=== PATIENT | male | born 1980 | race Caucasian/White ===

== ENCOUNTER → 2016-05-05 | Outpatient (CLI) | payer BC, OTHER ==
--- NOTE | 2016-05-06 19:35 | MR ---
EXAM DATE: 05/05/16 PATIENT'S AGE: 35 Patient: FLOYD COATES Facility: [place], [place] Site . Site : 1980 Study: MRI Shoulder Left [id number]/9/2017 7:24:41 PM Ordering Physician: Eloy Shaw Final Report: HISTORY: Shoulder pain. Technique: Routine shoulder protocol. Findings: Rotator cuff: Moderate increased signal intensity is present within the subscapularis and supraspinatus tendons consistent with moderate tendinosis. No tearing is noted. The other cuff components are intact. Acromioclavicular joint region: Mild degenerative change is present. There is surrounding bone marrow and soft tissue edema which could be related to the arthritic process alone. If there has been a recent injury, these findings could indicate ligamentous or capsular injury but no malalignment is noted. There is a flat, type 1 acromial undersurface without lateral downsloping. Biceps labral complex: No labral tearing or separation is noted. The biceps anchor and long biceps tendon are intact and in normal position. Glenohumeral joint: The articular cartilage surfaces are within normal limits. No joint effusion, erosion or loose body is noted. Bones and soft tissues: No findings for fracture or tumor. No muscular atrophy is noted. Impression: 1. Moderate subscapularis and supraspinatus tendinosis/contusion. No tearing is noted. 2. Degenerative change of the acromioclavicular joint with surrounding bone marrow and soft tissue edema. Dictated by Mariano Garcia MD @ May 06 2016 9:28AM (Electronic Signature) Report Signed by Proxy and Original Signed Document filed in the Medical Record. TAMMIE
== END ==
LOC: MW.MRI 17:49
PROVIDERS: ATTEND General Practice
DX: M75.82 Other shoulder lesions, left shoulder (principal); M79.89 Other specified soft tissue disorders
CPT/HCPCS: 73221-26-LT; 73221-LT

== ENCOUNTER 2017-03-11 18:03 | Emergency (ER) | payer BC, OTHER ==
--- NOTE | 2017-03-11 19:50 | EDM.PDOC ---
ED HPI GENERAL MEDICAL PROBLEM - General Chief Complaint: Lower Extremity Injury/Pain Stated Complaint: RIGHT FOOT PAIN Time Seen by Provider: 03/11/17 19:45 Source of Information: Reports: Patient History Limitations: Reports: No Limitations - History of Present Illness INITIAL COMMENTS - FREE TEXT/NARRATIVE: HISTORY AND PHYSICAL: History of present illness: [Patient comes to the emergency room complaining of right foot and ankle pain. States that around 10 AM this morning he was wearing crocs when he rolled his right ankle. He is now complaining of lateral and medial ankle pain, which is gradually worsening through the day. He denies numbness and tingling. He has not applied any ice, or taken any anti-inflammatories or medications. Denies history of previous fracture surgery to right lower extremity.] Review of systems: As per history of present illness and below otherwise all systems reviewed and negative. Past medical history: As per history of present illness and as reviewed below otherwise noncontributory. Surgical history: As per history of present illness and as reviewed below otherwise noncontributory. Social history: No reported history of drug or alcohol abuse. Family history: As per history of present illness and as reviewed below otherwise noncontributory. Physical exam: HEENT: Atraumatic, normocephalic. Extremities: Atraumatic in appearance. Is tender with palpation over lateral and medial aspect of the malleoli and foot. Pedal pulses are intact. Cap refill less than 2 seconds. negative for cords or calf pain. Neurovascular unremarkable. Neuro: Awake, alert, oriented. Cranial nerves II through XII unremarkable. Cerebellum unremarkable. Motor and sensory unremarkable throughout. Exam nonfocal. Diagnostics: [Right ankle x-ray] Impression: [Right ankle pain] Plan: [Notified patient that his x-rays are negative for fracture. Recommend rest ice compression and elevation. [id number] analgesics as needed. Follow-up with PCP. Return to ER as needed as discussed.] Definitive disposition and diagnosis as appropriate pending reevaluation and review of above. right foot Pain Score (Numeric/FACES): 10 - Related Data Allergies Allergy/AdvReac Type Severity Reaction Status Date / Time No Known Allergies Allergy Verified 02/14/14 13:45 Home Meds: Home Meds . [No Known Home Meds] 02/14/14 [History] Past Medical History - Past Health History Medical/Surgical History: Denies Medical/Surgical History Social & Family History - Family History Family Medical History: Noncontributory - Tobacco Use Smoking Status *Q: Never Smoker - Alcohol Use Days Per Week of Alcohol Use: 0 - Recreational Drug Use Recreational Drug Use: No Review of Systems - Review of Systems Review Of Systems: ROS reveals no pertinent complaints other than HPI. ED EXAM, GENERAL - Physical Exam Exam: See Below Course - Vital Signs Last Recorded V/S: Last Vital Signs Temp 98.7 F 03/11/17 18:34 Pulse 79 03/11/17 18:34 Resp 18 03/11/17 18:34 BP 138/78 03/11/17 18:34 Pulse Ox 99 03/11/17 18:34 - Orders/Labs/Meds Orders: Active Orders 24 hr Category Date Time Status Foot 2V Rt [CR] Stat Exams 03/11/17 18:13 Taken Departure - Departure Time of Disposition: 19:50 Disposition: Home, Self-Care 01 Condition: Good Clinical Impression: Right ankle pain - Discharge Information Referrals: PCP,None [Primary Care Provider] - Forms: ED Department Discharge Additional Instructions: The following information is given to patients seen in the emergency department who are being discharged to home. This information is to outline your options for follow-up care. We provide all patients seen in our emergency department with a follow-up referral. The need for follow-up, as well as the timing and circumstances, are variable depending upon the specifics of your emergency department visit. If you don't have a primary care physician on staff, we will provide you with a referral. We always advise you to contact your personal physician following an emergency department visit to inform them of the circumstance of the visit and for follow-up with them and/or the need for any referrals to a consulting specialist. The emergency department will also refer you to a specialist when appropriate. This referral assures that you have the opportunity for follow-up care with a specialist. All of these measure are taken in an effort to provide you with optimal care, which includes your follow-up. Under all circumstances we always encourage you to contact your private physician who remains a resource for coordinating your care. When calling for follow-up care, please make the office aware that this follow-up is from your recent emergency room visit. If for any reason you are refused follow-up, please contact the [facility] emergency department at and asked to speak to the emergency department charge nurse. [facility] [place] [id number] Follow-up with a local primary care provider or at the clinic listed above in the next 48-72 hours. Rest your ankle, put ice on your ankle, an ankle brace may help your ankle feel more supported. Elevate your ankle is much as possible. Tylenol alternating with ibuprofen as needed for discomfort. Return to ER as needed as discussed.
--- NOTE | 2017-03-13 18:20 | CR ---
EXAM DATE: 03/11/17 PATIENT'S AGE: 36 Patient: FLOYD COATES Facility: [place], [place] Site . Site : 1980 Study: XRay Extremity Right [id number]/13/2018 6:27:33 PM Ordering Physician: Doctor Iqbal Final Report: TECHNIQUE: Two views of the right foot. INDICATION: Foot pain. FINDINGS: No acute right foot fracture, dislocation or radiopaque foreign body. Normal right foot. Dictated by Parth Morrison MD @ 03/11/2017 6:35:14 PM Dictated by: Parth Morrison MD @ 03/11/2017 18:35:17 (Electronic Signature) Report Signed by Proxy. [email or web address]
== END 2017-03-11 20:15 | disposition home or self-care (01) ==
LOC: MW.ED 18:03
DX: M25.571 Pain in right ankle and joints of right foot (principal)
CPT/HCPCS: 73620-26-RT; 73620-RT; 99283